=== PATIENT | male | born 1995 | race Caucasian/White ===

== ENCOUNTER 2017-04-16 14:42 | Emergency (ER) | payer OTHER ==
[~2017-04-16] VITALS: Ht 170.2 cm; Wt 70.0 kg
[~2017-04-16 14:42] MED LIST: HYDR-3498 PO
[2017-04-16 14:45] VITALS: Ht 170.2 cm; Wt 70.0 kg
[2017-04-16] MEDS ORDERED: SOD CHLORIDE 0.9% 500 ML IV STA (15:45)
[2017-04-16] MEDS ORDERED: KETOROLAC 15 MG INJ IV STA (15:45)
[2017-04-16 16:22] LABS: BASOPHIL # 0.1 10^3/ul (0.0-0.1); BASOPHILS % 0.6 % (0.0-2.0); EOSINOPHILS # 0.5 10^3/ul (0.0-0.5); HEMATOCRIT 48.2 % (42.0-52.0); HEMOGLOBIN 16.8 g/dl (14.0-18.0); LYMPHOCYTES # 2.2 10^3/ul (0.8-2.9); LYMPHOCYTES % 27.4 % (15.0-51.0); MEAN CORPUSCULAR HEMOGLOBIN 30.4 pg (29.0-33.0); MEAN CORPUSCULAR HGB CONC 34.9 g/dl (32.0-37.0); MEAN CORPUSCULAR VOLUME 87.2 fl (82.0-101.0); MEAN PLATELET VOLUME 10.5 fl (7.4-10.4); MONOCYTE # 0.6 10^3/ul (0.3-0.9); MONOCYTES % 7.2 % (0.0-11.0); NEUTROPHILS % 58.4 % (39.0-77.0); PLATELET COUNT 264 10^3/UL (140-415); RED BLOOD COUNT 5.53 10^6/ul (4.70-6.10); RED CELL DISTRIBUTION WIDTH 13.8 % (11.5-14.5); WHITE BLOOD COUNT 8.1 10^3/ul (4.8-10.8)
[2017-04-16 16:24] LABS: ADD UMIC NO; UR ASCORBIC ACID NEGATIVE (NEGATIVE); UR BILIRUBIN (Dip) NEGATIVE (NEGATIVE); UR BLOOD (Dip) NEGATIVE (NEGATIVE); UR CLARITY CLEAR (CLEAR); UR COLOR YELLOW (YELLOW); UR GLUCOSE (Dip) NEGATIVE (NEGATIVE); UR KETONES (Dip) 2+ mg/dL (NEGATIVE); UR LEUKOCYTE ESTERASE (Dip) NEGATIVE Leu/ul (NEGATIVE); UR NITRITE (Dip) NEGATIVE (NEGATIVE); UR TOTAL PROTEIN (Dip) NEGATIVE (NEGATIVE); UR UROBILINOGEN (Dip) 1+ mg/dL (NEGATIVE)
--- NOTE | 2017-04-16 16:39 | ERD ---
ER Documentation Chief Complaint Date/Time DATE: 04/16/17 TIME: 16:34 Chief Complaint pt bib family with c/o abd pain to whole back HPI This is a 21-year-old male who presents to the emergency room stating "I need an ultrasound of my gallbladder and kidneys ". The patient states that he has been on a ketogenic diet and has lost approximately 70 pounds in 2-3 months. The patient has been describing abdominal pain. He states that he was diagnosed with a urinary tract infection by his primary care physician about a month and a half ago. He still describes dysuria symptoms. He states that he was tested for STDs. He describes excoriation around his glans penis and is uncircumcised. He does have intercourse but denies history of STDs. The patient is also describing diffuse abdominal pain and discomfort now radiating to bilateral back. He denies any fevers or chills nausea vomiting or constipation. The patient states that he has left upper quadrant abdominal pain when he drinks water. This is why he states that he needs an ultrasound of his gallbladder. He denies this pain with fried or fatty foods but is not eating most recently. The pain is noted to be 5 out of 10 in cramping and constant for approximately 1 month. ROS All systems reviewed and are negative except as per history of present illness. Medications Home Meds Active Scripts Clotrimazole* (Clotrimazole* AF) 1% - 30 Gm Cream.gm., 1 APPLIC TOP BID for 7 Days, TUB Prov:CHARLEEN DÍAZ MD 04/16/17 Famotidine* (Pepcid*) 20 Mg Tablet, 20 MG PO BID Y for abdominal pain for 14 Days, TAB Prov:CHARLEEN DÍAZ MD 04/16/17 Reported Medications Hydrocodone Bit-Acetaminophen* (Lorena*) 5-325 Mg Tab, 1 TAB PO Q4H, TAB 02/11/16 Allergies Allergies: Coded Allergies: amoxicillin (Verified Allergy, Unknown, RASH, 02/11/16) PMhx/Soc Medical and Surgical Hx: pt denies Medical Hx, pt denies Surgical Hx History of Surgery: No Anesthesia Reaction: No Hx Neurological Disorder: No Hx Respiratory Disorders: No Hx Cardiac Disorders: No Hx Psychiatric Problems: No Hx Miscellaneous Medical Probl: No Hx Alcohol Use: No Hx Substance Use: No Hx Tobacco Use: No Smoking Status: Never smoker FmHx Family History: No diabetes Physical Exam Vitals Vital Signs Date Time Temp Pulse Resp B/P Pulse Ox O2 Delivery O2 Flow Rate FiO2 04/16/17 14:45 98.3 84 18 142/70 99 Physical Exam General: Well developed, well nourished, no acute distress Head: Normocephalic, atraumatic Eyes: Pupils equally reactive, EOM intact ENT: Moist mucous membranes Neck: Supple, no lymphadenopathy Respiratory: Lungs clear bilaterally, no distress Cardiovascular: RRR, no murmurs, rubs, or gallops Abdominal: Soft, mild generalized abdominal pain tenderness to palpation without rebound or guarding, negative Dewey sign, no tenderness to McBurney's point : Uncircumcised male with normal external genitalia without lesions or excoriations. The patient has slight erythema and satellite lesions noted to the glans penis with retraction of foreskin, easily reducible. Bilateral descended testicles without swelling or tenderness. No hernia. MSK: No edema, no unilateral swelling, 5/5 strength Neurologic: Alert and oriented, moving all extremities, normal speech, no focal weakness, no cerebellar signs Skin: No rash Psych: Normal mood Result Diagram: 04/16/17 1555 04/16/17 1555 Results 24 hrs Laboratory Tests Test 04/16/17 15:55 White Blood Count 8.110^3/ul Red Blood Count 5.5310^6/ul Hemoglobin 16.8g/dl Hematocrit 48.2% Mean Corpuscular Volume 87.2fl Mean Corpuscular Hemoglobin 30.4pg Mean Corpuscular Hemoglobin Concent 34.9g/dl Red Cell Distribution Width 13.8% Platelet Count 33845^3/UL Mean Platelet Volume 10.5fl Neutrophils % 58.4% Lymphocytes % 27.4% Monocytes % 7.2% Eosinophils % 6.0% Basophils % 0.6% Nucleated Red Blood Cells % 0.0/100WBC Neutrophils # (Manual) 4.710^3/ul Lymphocytes # 2.210^3/ul Monocytes # 0.610^3/ul Eosinophils # 0.510^3/ul Basophils # 0.110^3/ul Nucleated Red Blood Cells # 0.010^3/ul Urine Color YELLOW Urine Clarity CLEAR Urine pH 5.0 Urine Specific Rickman 1.020 Urine Ketones 2+mg/dL Urine Nitrite NEGATIVEmg/dL Urine Bilirubin NEGATIVEmg/dL Urine Urobilinogen 1+mg/dL Urine Leukocyte Esterase NEGATIVELeu/ul Urine Hemoglobin NEGATIVEmg/dL Urine Glucose NEGATIVEmg/dL Urine Total Protein NEGATIVEmg/dl Sodium Level 143mmol/L Potassium Level 3.8mmol/L Chloride Level 104mmol/L Carbon Dioxide Level 26mmol/L Anion Gap 17 Blood Urea Nitrogen 14mg/dl Creatinine 0.87mg/dl Glucose Level 80mg/dl Calcium Level 10.2mg/dl Total Bilirubin 0.3mg/dl Direct Bilirubin 0.00mg/dl Indirect Bilirubin 0.3mg/dl Aspartate Amino Transf (AST/SGOT) 18IU/L Alanine Aminotransferase (ALT/SGPT) 28IU/L Alkaline Phosphatase 104IU/L Total Protein 8.8g/dl Albumin 5.0g/dl Globulin 3.80g/dl Albumin/Globulin Ratio 1.31 Lipase 153U/L Current Medications Medications (Trade) Dose Ordered Sig/Chiki Route PRN Reason Start Time Stop Time Status Last Admin Dose Admin Sodium Chloride (NS) 500 ml @ 500 mls/hr Q1H STAT IV 04/16/17 15:45 04/16/17 16:44 DC 04/16/17 16:03 Ketorolac Tromethamine (Toradol) 15 mg ONCE STAT IV 04/16/17 15:45 04/16/17 15:48 DC 04/16/17 16:03 Procedures/MDM LAB INTERPRETATION: No leukocytosis, no hepatobiliary obstruction, small ketonuria MEDICAL DECISION MAKING: The patient presents with generalized abdominal pain and urinary symptoms for approximately 1 month. The patient has rapidly lost 70 pounds in a 2-3 month timeframe. The patient is requesting a gallbladder ultrasound but does not have any clinical signs or symptoms concerning for cholelithiasis or acute cholecystitis. I believe we can start with basic blood work including LFTs lipase and CBC chemistry. The patient's abdominal pain is likely secondary to this rapid and aggressive weight loss. I do not believe this is consistent with acute intra-abdominal process such as appendicitis or bowel obstruction. The patient is also describing urinary symptoms. Low concern for STD but urinary GC and chlamydia would be reasonable. He states that he recently had negative outpatient testing. The patient has evidence of likely candidal balanoposthitis without signs or symptoms concerning for bacterial infection. No evidence of phimosis or paraphimosis. The patient has multiple complaints over a subacute timeframe. I believe basic blood work and symptom control here in the emergency room would be reasonable but outpatient follow-up with his primary care physician and I strongly recommended follow-up with a central office equipment engineer given his desire to lose significant amounts of weight. Outpatient GI follow-up may be necessary. Consideration for reflux versus peptic ulcer disease would also be possible. ER COURSE: The patient had small ketones in the urine likely suggestive of dehydration given the patient's ketogenic diet and significant dehydration. The patient was given IV fluids. He was advised to follow-up with a central office equipment engineer. The patient's laboratory testing does not suggest acute intra-abdominal process. Urinalysis not consistent with UTI. No indication for diagnostic imaging or antibiotics at this time. Outpatient follow-up with his primary care physician recommended, outpatient GI referral also provided. I kept the patient and/or family informed of laboratory and diagnostic imaging results throughout the emergency room course. DISPOSITION PLAN: We discussed follow up with the patient's primary care doctor within 24 to 48 hours as needed. We also discussed return to the emergency room for worsening symptoms or worsening condition. Outpatient referral: Gastroenterology Discharge Medications: Clotrimazole, pepcid Departure Diagnosis: Primary Impression: Candidal balanoposthitis Additional Impressions: Abdominal pain Abdominal location: generalized Qualified Code: R10.84 - Generalized abdominal pain Ketonuria Condition: Stable CHARLEEN DÍAZ MD Apr 16, 2017 16:39
[2017-04-16 16:40] LABS: ALBUMIN/GLOBULIN RATIO 1.31; BILIRUBIN,INDIRECT 0.3 mg/dl (0-1.1); BILIRUBIN,TOTAL 0.3 mg/dl (0.2-1.3); CALCIUM 10.2 mg/dl (8.4-10.2); CREATININE 0.87 mg/dl (0.61-1.24); POTASSIUM 3.8 mmol/L (3.5-5.1); TOTAL PROTEIN 8.8 g/dl (6.1-8.1)
[2017-04-16] MEDS ORDERED: FAMO-96 PO (17:04)
[2017-04-16] MEDS ORDERED: CLOT30CR24 TOP (17:05)
[2017-04-16 17:21] VITALS: BP 122/82; PULSE 69; RESP 16; TEMP 98.9
== END 2017-04-16 17:21 | disposition home or self-care (01) ==
LOC: FTE 14:42
DX: N47.6 Balanoposthitis (principal); R82.4 Acetonuria; B37.49 Other urogenital candidiasis
CPT/HCPCS: 36415; 80053; 81003; 83690; 85025; 87086; 87591; 96374; 99284; J1885; J7040